=== PATIENT | male | born 1975 | race Caucasian/White ===

== ENCOUNTER → 2023-07-11 | Emergency (ER) | payer OTHER ==
[~2023-07-11] VITALS: Ht 180.3 cm; Wt 93.0 kg
[~2023-07-11] MED LIST: 0.9%NACL 1000ML 1,000 ML IV ONE; ACETAMINOPHEN 325 MG TAB PO ONE; DIPHENHYDRAMINE HCL 25 MG CAPSULE PO ONE; DiphenhydrAMINE HCL 50 MG/ML VIAL IV ONE; HYDROXYZINE 50MG VIAL 50 MG/ML VIAL IM SCH; PROCHLORPERAZINE 10MG/2ML INJ IV ONE
[2023-07-11 18:24] VITALS: BP 159/99; PULSE 73; RESP 14
== END ==
LOC: EDH 18:17
DX: G43.909 Migraine, unspecified, not intractable, without status migrainosus (principal); F41.1 Generalized anxiety disorder
CPT/HCPCS: 99283; 96372; 93005; Q0163; J3410